=== PATIENT | male | born 1940 | race African-American/Black ===

== ENCOUNTER 2016-04-10 09:34 | Outpatient (CLI) | payer MEDICARE ==
[2016-04-10 10:25] LABS: Albumin 4.1 g/dL (3.9-5); BUN/Creatinine Ratio 14.37; Calcium 9.7 mg/dL (8.4-10.2); Chloride 102.9 mmol/L (98-107); Phosphorous 2.7 mg/dL (2.5-4.5)
[2016-04-12 19:30] LABS: Vitamin D, 25-OH, Total 29 ng/mL (30-100)
[2016-04-14 08:25] LABS: Vitamin D, 25-OH, D2 SEE SCANNED RESULT
== END 2016-04-10 09:35 | disposition home or self-care (01) ==
LOC: LAB 09:34
PROVIDERS: ATTEND Internal Medicine Nephrology
DX: E11.22 Type 2 diabetes mellitus with diabetic chronic kidney disease (principal); N18.3 Chronic kidney disease, stage 3 (moderate); R80.9 Proteinuria, unspecified; E78.5 Hyperlipidemia, unspecified; E83.52 Hypercalcemia; F17.200 Nicotine dependence, unspecified, uncomplicated
CPT/HCPCS: 36415; 80048; 82040; 82043; 82306; 84100

== ENCOUNTER 2017-06-19 09:25 | Outpatient (CLI) | payer MEDICARE ==
[2017-06-19 09:40] LABS: Hematocrit 42.9 % (35.5-45.6); Hemoglobin 14.8 gm/dl (11.8-15.2); Mean Corpuscular HGB Conc 35 % (32-34); Mean Corpuscular Hemoglobin 31 pg (28-32); Mean Corpuscular Volume 90 fl (84-94); Platelet Count 236 K/mm3 (140-440); Red Blood Count 4.78 M/mm3 (3.65-5.03); Red Cell Distribution Width 13.9 % (13.2-15.2)
[2017-06-19 09:50] LABS: Bilirubin,Urine NEG (Negative); Blood,Urine NEG (Negative); Color,Urine Yellow (Yellow); Mucus,Urine FEW /HPF; Urobilinogen,Urine < 2.0 mg/dL (<2.0)
[2017-06-19 10:04] LABS: Albumin 4.3 g/dL (3.9-5); Calcium 10.3 mg/dL (8.4-10.2)
[2017-06-19 10:52] LABS: Creatinine,Urine 159.2 mg/dL (0.1-20.0)
[2017-06-19 11:09] LABS: Protein/Creatinine Ratio,Urine 1.31
== END 2017-06-19 09:26 | disposition home or self-care (01) ==
LOC: LAB 09:25
PROVIDERS: ATTEND Internal Medicine Nephrology
DX: I12.9 Hypertensive chronic kidney disease with stage 1 through stage 4 chronic kidney disease, or unspecified chronic kidney disease (principal); N18.3 Chronic kidney disease, stage 3 (moderate); E11.22 Type 2 diabetes mellitus with diabetic chronic kidney disease; E78.5 Hyperlipidemia, unspecified; E83.52 Hypercalcemia; R80.9 Proteinuria, unspecified
CPT/HCPCS: 36415; 80048; 81001; 82040; 82570; 84100; 84156; 85027

== ENCOUNTER 2017-10-15 09:34 | Outpatient (CLI) | payer MEDICARE ==
[2017-10-15 10:04] LABS: Basophils % (Auto) 0.3 % (0.0-1.8); Eosinophils # (Auto) 0.3 K/mm3 (0.0-0.4); Eosinophils % (Auto) 4.1 % (0.0-4.3); Hematocrit 40.7 % (35.5-45.6); Hemoglobin 13.9 gm/dl (11.8-15.2); Lymphocytes # (Auto) 1.8 K/mm3 (1.2-5.4); Lymphocytes % (Auto) 23.7 % (13.4-35.0); Mean Corpuscular HGB Conc 34 % (32-34); Mean Corpuscular Hemoglobin 31 pg (28-32); Mean Corpuscular Volume 90 fl (84-94); Monocytes # (Auto) 0.7 K/mm3 (0.0-0.8); Monocytes % (Auto) 9.3 % (0.0-7.3); Platelet Count 243 K/mm3 (140-440); Red Cell Distribution Width 14.5 % (13.2-15.2)
[2017-10-15 10:20] LABS: Albumin 4.3 g/dL (3.9-5); Calcium 9.9 mg/dL (8.4-10.2)
== END 2017-10-15 09:35 | disposition home or self-care (01) ==
LOC: LAB 09:34
PROVIDERS: ATTEND Internal Medicine Nephrology
DX: I12.9 Hypertensive chronic kidney disease with stage 1 through stage 4 chronic kidney disease, or unspecified chronic kidney disease (principal); E11.22 Type 2 diabetes mellitus with diabetic chronic kidney disease; N18.3 Chronic kidney disease, stage 3 (moderate); R80.9 Proteinuria, unspecified; E78.5 Hyperlipidemia, unspecified; F17.200 Nicotine dependence, unspecified, uncomplicated; E83.52 Hypercalcemia
CPT/HCPCS: 36415; 80048; 82040; 83970; 84100; 85025

== ENCOUNTER 2018-06-17 10:09 | Outpatient (CLI) | payer MEDICARE ==
[2018-06-17 10:42] LABS: Hematocrit 45.7 % (35.5-45.6); Hemoglobin 15.5 gm/dl (11.8-15.2)
[2018-06-17 10:56] LABS: Albumin 4.7 g/dL (3.9-5); Calcium 10.8 mg/dL (8.4-10.2)
== END 2018-06-17 10:10 | disposition home or self-care (01) ==
LOC: LAB 10:09
PROVIDERS: ATTEND Internal Medicine Nephrology
DX: E11.22 Type 2 diabetes mellitus with diabetic chronic kidney disease (principal); I12.9 Hypertensive chronic kidney disease with stage 1 through stage 4 chronic kidney disease, or unspecified chronic kidney disease; N18.3 Chronic kidney disease, stage 3 (moderate); E78.5 Hyperlipidemia, unspecified; R80.9 Proteinuria, unspecified; E83.52 Hypercalcemia; F17.200 Nicotine dependence, unspecified, uncomplicated
CPT/HCPCS: 36415; 80048; 82040; 83970; 84100; 85014; 85018

== ENCOUNTER 2018-08-20 08:25 | Outpatient (CLI) | payer MEDICARE ==
[2018-08-20 09:25] LABS: Albumin 4.4 g/dL (3.9-5)
[2018-08-20 09:44] LABS: Bilirubin,Urine NEG (Negative); Blood,Urine NEG (Negative); Color,Urine Yellow (Yellow); Urobilinogen,Urine < 2.0 mg/dL (<2.0)
[2018-08-20 09:49] LABS: WBC,Urine < 1.0 /HPF (0.0-6.0)
== END 2018-08-20 08:26 | disposition home or self-care (01) ==
LOC: LAB 08:25
PROVIDERS: ATTEND Internal Medicine Nephrology
DX: I12.9 Hypertensive chronic kidney disease with stage 1 through stage 4 chronic kidney disease, or unspecified chronic kidney disease (principal); E11.22 Type 2 diabetes mellitus with diabetic chronic kidney disease; N18.3 Chronic kidney disease, stage 3 (moderate); R80.9 Proteinuria, unspecified; E78.5 Hyperlipidemia, unspecified; F17.200 Nicotine dependence, unspecified, uncomplicated; E83.52 Hypercalcemia
CPT/HCPCS: 36415; 80048; 81001; 82040; 82550; 84100; 89050

== ENCOUNTER 2018-11-29 09:19 | Outpatient (CLI) | payer MEDICARE ==
[2018-11-29 10:12] LABS: Calcium 9.6 mg/dL (8.4-10.2)
== END 2018-11-29 09:20 | disposition home or self-care (01) ==
LOC: LAB 09:19
PROVIDERS: ATTEND Internal Medicine Nephrology
DX: I12.9 Hypertensive chronic kidney disease with stage 1 through stage 4 chronic kidney disease, or unspecified chronic kidney disease (principal); N18.3 Chronic kidney disease, stage 3 (moderate); R80.9 Proteinuria, unspecified; E11.22 Type 2 diabetes mellitus with diabetic chronic kidney disease; E78.5 Hyperlipidemia, unspecified; F17.200 Nicotine dependence, unspecified, uncomplicated; E83.52 Hypercalcemia
CPT/HCPCS: 36415; 80048; 82040; 83970; 84100

== ENCOUNTER 2019-02-24 09:09 | Outpatient (CLI) | payer MEDICARE ==
[2019-02-24 09:39] LABS: Basophils % (Auto) 0.4 % (0.0-1.8); Eosinophils # (Auto) 0.1 K/mm3 (0.0-0.4); Hemoglobin 15.1 gm/dl (11.8-15.2); Lymphocytes # (Auto) 1.9 K/mm3 (1.2-5.4); Lymphocytes % (Auto) 28.1 % (13.4-35.0); Mean Corpuscular HGB Conc 34 % (32-34); Mean Corpuscular Volume 92 fl (84-94); Monocytes # (Auto) 0.7 K/mm3 (0.0-0.8); Monocytes % (Auto) 9.8 % (0.0-7.3); Platelet Count 178 K/mm3 (140-440); Red Blood Count 4.77 M/mm3 (3.65-5.03); Red Cell Distribution Width 13.7 % (13.2-15.2)
[2019-02-24 09:58] LABS: Creatinine,Urine 134.1 mg/dL (0.1-20.0)
[2019-02-24 10:07] LABS: Albumin 4.1 g/dL (3.9-5)
[2019-02-24 10:10] LABS: Microalbumin/Creatinine Ratio 1484.7 ug/mg
== END 2019-02-24 09:10 | disposition home or self-care (01) ==
LOC: LAB 09:09
PROVIDERS: ATTEND Internal Medicine Nephrology
DX: E11.22 Type 2 diabetes mellitus with diabetic chronic kidney disease (principal); N18.3 Chronic kidney disease, stage 3 (moderate); R80.9 Proteinuria, unspecified; E78.5 Hyperlipidemia, unspecified; F17.200 Nicotine dependence, unspecified, uncomplicated; E83.52 Hypercalcemia; I10 Essential (primary) hypertension
CPT/HCPCS: 36415; 80048; 82040; 82043; 83036; 84100; 85025

== ENCOUNTER 2019-07-15 09:36 | Outpatient (CLI) | payer MEDICARE ==
[2019-07-15 10:09] LABS: Hematocrit 41.7 % (35.5-45.6); Hemoglobin 14.2 gm/dl (11.8-15.2)
[2019-07-15 10:47] LABS: Albumin 4.1 g/dL (3.9-5); Calcium 9.9 mg/dL (8.4-10.2)
[2019-07-15 11:30] LABS: Creatinine,Urine 66.1 mg/dL (0.1-20.0)
[2019-07-15 11:43] LABS: Microalbumin/Creatinine Ratio 727.6 ug/mg
== END 2019-07-15 09:37 | disposition home or self-care (01) ==
LOC: LAB 09:36
PROVIDERS: ATTEND Internal Medicine Nephrology
DX: E78.5 Hyperlipidemia, unspecified (principal); F17.200 Nicotine dependence, unspecified, uncomplicated; R80.9 Proteinuria, unspecified; E11.22 Type 2 diabetes mellitus with diabetic chronic kidney disease; N18.3 Chronic kidney disease, stage 3 (moderate)
CPT/HCPCS: 36415; 80048; 82040; 82043; 83970; 84100; 85014; 85018

== ENCOUNTER 2019-11-25 09:32 | Outpatient (CLI) | payer MEDICARE ==
[2019-11-25 10:07] LABS: Bilirubin,Urine NEG (Negative); Blood,Urine NEG (Negative); Color,Urine Yellow (Yellow); Urobilinogen,Urine < 2.0 mg/dL (<2.0); WBC,Urine < 1.0 /HPF (0.0-6.0)
[2019-11-25 10:25] LABS: Creatinine,Urine 68.9 mg/dL (0.1-20.0); Protein/Creatinine Ratio,Urine 1.1
[2019-11-25 10:31] LABS: Calcium 10.1 mg/dL (8.4-10.2)
== END 2019-11-25 09:33 | disposition home or self-care (01) ==
LOC: LAB 09:32
PROVIDERS: ATTEND Internal Medicine Nephrology
DX: I12.9 Hypertensive chronic kidney disease with stage 1 through stage 4 chronic kidney disease, or unspecified chronic kidney disease (principal); E11.22 Type 2 diabetes mellitus with diabetic chronic kidney disease; N18.30 Chronic kidney disease, stage 3 unspecified; R80.9 Proteinuria, unspecified; E78.5 Hyperlipidemia, unspecified; E83.52 Hypercalcemia; F17.200 Nicotine dependence, unspecified, uncomplicated
CPT/HCPCS: 36415; 80048; 81001; 82040; 82570; 84100; 84156; 89050

== ENCOUNTER 2020-03-29 08:58 | Outpatient (CLI) | payer MEDICARE ==
[2020-03-29 09:31] LABS: Basophils % (Auto) 0.4 % (0.0-1.8); Eosinophils # (Auto) 0.4 K/mm3 (0.0-0.4); Eosinophils % (Auto) 4.4 % (0.0-4.3); Hematocrit 39.4 % (35.5-45.6); Hemoglobin 13.5 gm/dl (11.8-15.2); Lymphocytes % (Auto) 24.2 % (13.4-35.0); Mean Corpuscular HGB Conc 34 % (32-34); Mean Corpuscular Volume 94 fl (84-94); Monocytes # (Auto) 0.8 K/mm3 (0.0-0.8); Monocytes % (Auto) 9.9 % (0.0-7.3); Platelet Count 199 K/mm3 (140-440); Red Blood Count 4.18 M/mm3 (3.65-5.03); Red Cell Distribution Width 13.9 % (13.2-15.2)
[2020-03-29 09:50] LABS: Albumin 4.1 g/dL (3.9-5); Calcium 9.5 mg/dL (8.4-10.2)
== END 2020-03-29 08:59 | disposition home or self-care (01) ==
LOC: LAB 08:58
PROVIDERS: ATTEND Internal Medicine Nephrology
DX: E11.22 Type 2 diabetes mellitus with diabetic chronic kidney disease (principal); E78.5 Hyperlipidemia, unspecified; F17.200 Nicotine dependence, unspecified, uncomplicated; E83.52 Hypercalcemia; N18.30 Chronic kidney disease, stage 3 unspecified; R80.9 Proteinuria, unspecified
CPT/HCPCS: 36415; 80048; 82040; 83970; 84100; 85025

== ENCOUNTER 2020-05-24 09:51 | Outpatient (CLI) | payer MEDICARE ==
[2020-05-24 10:27] LABS: Hematocrit 39.9 % (35.5-45.6); Hemoglobin 13.6 gm/dl (11.8-15.2); Mean Corpuscular HGB Conc 34 % (32-34); Mean Corpuscular Volume 96 fl (84-94); Platelet Count 193 K/mm3 (140-440); Red Blood Count 4.18 M/mm3 (3.65-5.03); Red Cell Distribution Width 13.9 % (13.2-15.2)
[2020-05-24 11:18] LABS: Calcium 9.7 mg/dL (8.4-10.2)
== END 2020-05-24 09:52 | disposition home or self-care (01) ==
LOC: LAB 09:51
PROVIDERS: ATTEND Internal Medicine Nephrology
DX: I12.9 Hypertensive chronic kidney disease with stage 1 through stage 4 chronic kidney disease, or unspecified chronic kidney disease (principal); E11.22 Type 2 diabetes mellitus with diabetic chronic kidney disease; E78.5 Hyperlipidemia, unspecified; N18.30 Chronic kidney disease, stage 3 unspecified; R80.9 Proteinuria, unspecified; F17.200 Nicotine dependence, unspecified, uncomplicated; E83.52 Hypercalcemia
CPT/HCPCS: 36415; 80048; 82040; 84100; 85027

== ENCOUNTER 2021-01-06 07:46 | Day surgery (SDC) | payer MEDICARE ==
[2021-01-06] MEDS ORDERED: SODIUM CHLORIDE 0.9% 500 ML 500 ML IV SCH (09:00)
[2021-01-06 09:26] LABS: Basophils % (Auto) 0.4 % (0.0-1.8); Eosinophils # (Auto) 0.2 K/mm3 (0.0-0.4); Eosinophils % (Auto) 2.5 % (0.0-4.3); Hematocrit 41.6 % (35.5-45.6); Hemoglobin 13.9 gm/dl (11.8-15.2); Lymphocytes # (Auto) 1.3 K/mm3 (1.2-5.4); Lymphocytes % (Auto) 16.2 % (13.4-35.0); Mean Corpuscular HGB Conc 33 % (32-34); Mean Corpuscular Volume 95 fl (84-94); Monocytes # (Auto) 0.7 K/mm3 (0.0-0.8); Monocytes % (Auto) 9.3 % (0.0-7.3); Platelet Count 191 K/mm3 (140-440); Red Blood Count 4.37 M/mm3 (3.65-5.03)
[2021-01-06 09:39] LABS: Calcium 9.5 mg/dL (8.4-10.2)
[2021-01-06 09:45] VITALS: BP 159/61
[2021-01-06] MEDS ORDERED: ASPIRIN 81 MG TAB CHEW PO SCH (10:00)
[2021-01-06 10:25] LABS: INR 0.88 (0.87-1.13); Partial Thromboplastin Time 33.6 Sec. (24.2-36.6)
--- NOTE | 2021-01-06 10:46 | Electrocardiograph Report ---
[facility] Test Date: 2021-01-06 Test Time: 09:28:22 Pat Name: SAHRA TRACY Department: Room: Gender: M Grader Operator: MICHAEL : 1940 Requested By: RAOUL LINARES Order Number: [id number] Reading MD: Abelardo Landis Measurements Intervals [place] Rate: 62 P: 39 NC: 166 QRS: 11 QRSD: 82 T: 60 QT: 422 QTc: 430 Interpretive Statements Sinus rhythm Low voltage, precordial leads Consider anterior infarct No previous ECG available for comparison Electronically Signed On 01-06-2021 10:46:14 EST by Abelardo Landis
--- NOTE | 2021-01-06 12:40 | Event Note ---
Date: 01/06/21 Patient presented for outpatient cardiac catheterization, on pre catheterization assessment found to have kidney failure with creatinine of 1.7. A review of his previous labs show that he has chronic kidney disease with average creatinine of 1.6-2.0. Out of concern for contrast nephropathy, we recommended a cancellation of the pr ocedure today. The patient should be rescheduled with a plan for 6 to 12 hours of IV normal saline rehydration at 75 cc/h. The patient is asymptomatic, and understands the caution that is being exercised in the temporary cancellation of the contrast angiography procedure. He will follow up with his primary spar machine operator Dr. Velez.
== END 2021-01-06 07:47 | disposition home or self-care (01) ==
LOC: CATHLABREC 07:46
PROVIDERS: ATTEND Internal Medicine Cardiovascular Disease
DX: I25.2 Old myocardial infarction (principal); Z53.8 Procedure and treatment not carried out for other reasons; Z79.899 Other long term (current) drug therapy
CPT/HCPCS: 36415; 80048; 85025; 85610; 85730; 93005; J7040